=== PATIENT | female | born 1990 | race Caucasian/White ===

== ENCOUNTER 2018-03-21 12:46 | Inpatient (IN) ==
[2018-03-21] MEDS ORDERED: Morphine Sulfate PF Inj 5 MG/10 ML Ampul ONE (13:22)
[2018-03-21] MEDS ORDERED: Citric Acid/Sodium Citrate Liq 30 ML UDC PO SCH (13:30)
[2018-03-21 13:35] LABS: Baso % (Auto) 0.2 % (0.0-2.0); Eos # (Auto) 0.1 th/mm3 (0.0-0.4); Eos % (Auto) 0.9 % (0.0-4.0); Hematocrit 37.1 % (35.0-46.0); Hemoglobin 12.4 gm/dL (11.6-15.3); Lymph # (Auto) 1.5 th/mm3 (1.0-4.8); Lymph % (Auto) 14.5 % (9.0-44.0); Mean Corpuscular HGB Conc 33.5 % (32.0-36.0); Mean Corpuscular Hemoglobin 27.9 pg (27.0-34.0); Mean Corpuscular Volume 83.2 fL (80.0-100.0); Mean Platelet Volume 7.9 fL (7.0-11.0); Mono # (Auto) 0.6 th/mm3 (0.0-0.9); Mono % (Auto) 5.7 % (0.0-8.0); Neut # (Auto) 7.9 th/mm3 (1.8-7.7); Neut % (Auto) 78.7 % (16.0-70.0); Platelet Count 295 th/mm3 (150-450); Red Blood Count 4.46 mil/mm3 (4.00-5.30); Red Cell Distribution Width 14.9 % (11.6-17.2)
--- NOTE | 2018-03-21 13:36 | P.HPOB ---
History of Present Illness Service: ob Primary Care Physician: UNKNOWN Chief Complaint: repeat CD, pre-e History of Present Illness: 27 yo with iup at 39 wk seen at [facility] visit in office was noted to have elevated BP And proteinuria, new onset. Denies HOUSE/VIS changes or ruq change. Good fm, neg ctx/vb/lof. She has had a prior cd and would like repeat cd' she was scheduled for 03/24/18 PMH Obesity, abn glucose tolerance, varicella non-immune PSH CD and Cholecystectomy OB- G1 04/2014 FTCD for arrest of descent, 6 lb 14 oz. 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 This includes certification that hospital inpatient services are reasonable and necessary and in the case of services not specified as inpatient-only under 42 CFR 419.22(n), that they are appropriately provided as inpatient services in accordance to with the 2-midnight benchmark under 43 CFR 412.3(e) Estimated Total Length of Stay (Days): 3 Plans for Post Hospital Care: Home Review of Systems All other systems reviewed negative except as stated in HPI PMFSH - Tobacco History Smoking Status: Never smoker - Substance Use History Substance History: No History of Abuse - Travel History History of Recent Travel: No Medications and Allergies Active Medications: Active Medications Citric Acid/Sodium Citrate (Sodium Citrate/Citric Acid Liq) 30 ml PO SKIN DIVER [facility] Stop: 03/25/18 13:29 Cefazolin Sodium 2,000 mg/ (Sodium Chloride) 100 mls @ 200 mls/hr IV.SIG SKIN DIVER LEANDRO Stop: 03/25/18 13:59 Lactated Ringer's (Lr 1000 Ml Inj) 1,000 mls @ 2,000 mls/hr IV.SIG .Q30M ONE Stop: 03/21/18 13:57 Lactated Ringer's (Lr 1000 Ml Inj) 1,000 mls @ 150 mls/hr IV.CONT .Q6H40M [facility] Allergies Allergy/AdvReac Type Severity Reaction Status Date / Time No Known Allergies Allergy Verified 03/21/18 14:14 Home Medications Medication Instructions Recorded Confirmed Type No Known Home Medications 03/21/18 03/21/18 History Exam Vital signs: Vital Signs 03/21/18 13:05 03/21/18 13:06 Temperature 98.3 F Pulse Rate 103 H Respiratory Rate 20 Blood Pressure 133/90 - Constitutional no acute distress - Routine HEENT Exam Head: Present: normocephalic Eye: Present: EOMI - Routine Neck Exam Present: full ROM - Routine Respiratory Exam Absent: accessory muscle use, decreased breath sounds - Routine Cardiovascular Exam Present: RRR - Routine Abdominal Exam Present: soft - Routine Exam Comments: ft/th/hi - Routine Extremities Exam Absent: cyanosis, clubbing, edema - Routine Neurological Exam Present: alert, oriented X3 Results - Labs CBC & Chem 7: 03/21/18 13:10 03/21/18 13:10 Caprini VTE Risk Assessment Greggrini VTE Risk Assessment: No/Low Risk (score <= 1) Greggrini Risk Assessment Model: Point Value = 1 Point Value = 2 Point Value = 3 Point Value = 5 Age 41-60 Minor surgery BMI > 25 kg/m2 Swollen legs Varicose veins or History of unexplained or recurrent spontaneous Oral contraceptives or hormone replacement Sepsis (< 1 month) Serious lung disease, including pneumonia (< 1 month) Abnormal pulmonary function Acute myocardial infarction Congestive heart failure (< 1 month) History of inflammatory bowel disease Medical patient at bed rest Age 61-74 Arthroscopic surgery Major open surgery (> 45 min) Laparoscopic surgery (> 45 min) Malignancy Confined to bed (> 72 hours) Immobilizing plaster cast Central venous access Age >= 75 History of VTE Family history of VTE Factor V Leiden Prothrombin [id number] Lupus anticoagulant Anticardiolipin antibodies Elevated serum homocysteine Heparin-induced thrombocytopenia Other congenital or acquired thrombophilia Stroke (< 1 month) Elective arthroplasty Hip, pelvis, or leg fracture Acute spinal cord injury (< 1 month) Prophylaxis Regimen: Total Risk Factor Score Risk Level Prophylaxis Regimen 0-1 Low Early ambulation 2 Moderate Order ONE of the following: *Sequential Compression Device (SCD) *Heparin 5000 units SQ BID 3-4 Higher Order ONE of the following medications: *Heparin 5000 units SQ TID *Enoxaparin/Lovenox 40 mg SQ daily (WT < 150 kg, CrCl > 30 mL/min) *Enoxaparin/Lovenox 30 mg SQ daily (WT < 150 kg, CrCl > 10-29 mL/min) *Enoxaparin/Lovenox 30 mg SQ BID (WT < 150 kg, CrCl > 30 mL/min) AND/OR *Sequential Compression Device (SCD) 5 or more Highest Order ONE of the following medications: *Heparin 5000 units SQ TID (Preferred with Epidurals) *Enoxaparin/Lovenox 40 mg SQ daily (WT < 150 kg, CrCl > 30 mL/min) *Enoxaparin/Lovenox 30 mg SQ daily (WT < 150 kg, CrCl > 10-29 mL/min) *Enoxaparin/Lovenox 30 mg SQ BID (WT < 150 kg, CrCl > 30 mL/min) AND *Sequential Compression Device (SCD) Assessment and Plan - Diagnosis (1) History of delivery Code(s): Z98.891 - History of uterine scar from previous surgery Status: Acute (2) Maternal varicella, non-immune Code(s): O09.899 - Supervision of other high risk pregnancies, unspecified trimester; Z28.3 - Underimmunization status Status: Acute (3) History of spontaneous Code(s): Z87.59 - Personal history of other complications of , childbirth and the puerperium Status: Acute (4) Abnormal glucose tolerance affecting , antepartum Code(s): O99.810 - Abnormal glucose complicating Status: Acute (5) Preeclampsia Code(s): O14.90 - Unspecified pre-eclampsia, unspecified trimester Status: Acute - Plan 27 yo with iup at 39 wk being admitted for repeat cd for preeclampsia Elevated BP and proteinuria- meets criteria for Pre-eclampsia Obesity with abn glucose tolerance - abn 1 hour but normal 3 hr gtt varicella non-immune - vaccination pp Ascus pap neg hpv- repeat pp FEtus - cephalic, female, Mansi
[2018-03-21 13:56] LABS: Albumin 2.8 g/dL (3.4-5.0); Anion Gap 12 meq/L (5-15); Aspartate Aminotransferase 19 U/L (15-37); Blood Urea Nitrogen 13 mg/dL (7-18); Calcium 8.6 mg/dL (8.5-10.1); Carbon Dioxide 19.7 meq/L (21.0-32.0); Chloride 105 meq/L (98-107); Glomerular Filtration Rate Greater Than 89 mL/min (>89); Glucose,Random 74 mg/dL (74-106); Sodium 137 meq/L (136-145); Uric Acid 4.7 mg/dl (2.6-6.0)
[2018-03-21] MEDS ORDERED: ceFAZolin 2 GM Premix Inj 2 GM/100 ML BAG IV.SIG SCH (14:00)
[2018-03-21] MEDS ORDERED: ceFAZolin Inj 2,000 MG in Sodium Chlor 0.9% Inj 80 ML IV.SIG SCH (14:00)
[2018-03-21 14:03] LABS: Alanine Aminotransferase 25 U/L (10-53); Alkaline Phosphatase 166 U/L (45-117); Total Protein 6.7 g/dL (6.4-8.2)
[2018-03-21 14:10] LABS: Amphetamine Screen,Urine Neg (Neg); Bacteria,Urine Moderate /hpf; Barbiturate Screen,Urine Neg (Neg); Bilirubin,Urine Negative (Negative); Cannabinoid Screen,Urine Neg (Neg); Clarity,Urine Cloudy (Clear); Cocaine Screen,Urine Neg (Neg); Color,Urine Amber (Yellw/Straw); Glucose,Urine (UA) Negative (Negative); Leukocyte Esterase,Urine Small (Negative); Mucus,Urine Few /lpf (Occasional); Nitrite,Urine Negative (Negative); Specific Gravity,Urine 1.027 (1.002-1.035); Squamous Epithelial Cell,Urine 15 /hpf (0-5)
[2018-03-21 14:19] LABS: Opiate Screen,Urine Neg (Neg)
[2018-03-21] MEDS ORDERED: Phenylephrine/NS 1000 MCG/10ML Syringe IV.PUSH ONE (14:45)
[2018-03-21] MEDS ORDERED: Acetaminophen 325 MG Tablet PO PRN (15:53)
[2018-03-21] MEDS ORDERED: Zolpidem Tartrate 5 MG Tablet PO PRN (15:53)
[2018-03-21] MEDS ORDERED: Senna/Docusate Sodium 8.6/50 MG Tablet PO PRN (15:53)
[2018-03-21] MEDS ORDERED: Simethicone 80 MG Chew Tablet PO PRN (15:53)
--- NOTE | 2018-03-21 16:00 | P.OBDELI ---
Procedure Note - Pre Op Diagnosis (1) History of delivery (2) Maternal varicella, non-immune (3) Abnormal glucose tolerance affecting , antepartum (4) Preeclampsia - Post Op Diagnosis (1) History of delivery (2) Maternal varicella, non-immune (3) Abnormal glucose tolerance affecting , antepartum (4) Preeclampsia Performed by: Doris Begum MD Procedure: Repeat Low Transverse Section Indication for Delivery: Desired elective repeat , Maternal medical problems (preeclampsia) Informed Consent Obtained: For anesthesia, For procedure Confirmed Correct: Patient, Procedure, Site, Time-out taken Anesthesia: Spinal Medication Prior to Procedure: As documented in eMAR Monitoring During Procedure: Blood pressure monitoring, Pulse oximetry Urinary Catheter: Inserted using sterile technique, To dependent drainage, ml urine output (100) Sterile Preparation: With 2% chlorexidine (Hibiclens), With drapes to expose affected area Position: Supine with wedge to right side, Supine with safety belt applied - Operative Features Skin Incision: Pfannenstiel Uterine Incision: Low transverse w/knife / blunt ext Membranes Ruptured: Appearance of fluid (clear) Presentation: Occiput posterior, Compound (right arm) Status of : Viable Placenta Delivered: Intact Medications: Antibiotics, Oxytocin Estimated blood loss (mL): 800 Procedure Tolerated: Well Maternal Condition: Stable Baby Condition: Stable Procedure in Detail: Indication: Preeclampsia at term, desired repeat CD Intraoperative findings: Normal uterus, tubes and ovaries. Right paratubal cyst. Adhesion of fascia to rectus muscles, scarring of fascia and subcutaneous tissue. Complications: none Counts: Correct x 3 Specimens: cord blood Dispo: to pacu Procedure in detail: After review of informed consent, pt was taken to the OR where spinal anesthesia was administered w/o complication. She had swann placed in sterile fashion. SCDs to bilateral extremities. Ancef 2 g IV given preincision. Abdomen and perineum were prepped and draped in sterile fashion. A Pfannenstiel skin incision was made with the scalpel at prior incision site, and carried down to the underlying layer of fascia with the bovie. the subcutaneous tissue and the fascia were noted to have scarring. The fascia was incised in the midline; this incision was extended bilaterally w Rea scissors. The superior edge, followed by the inferior edge, of the fascia was grasped with clayton clamps, elevated and from the rectus muscles with rea scissors and bluntly. The rectus muscles were in the midline with the hemostat. Peritoneum was entered bluntly and extended to allow for good visualization of the lower uterine segment. Bladder blade was inserted. A bladder flap was created with Metzenbaum scissors. The bladder blade was then replaced. A low transverse uterine incision was made with the scalpel and extended bluntly. Clear amniotic fluid noted. Baby was OP with right compound are. The head was flexed and brought to the level of the hysterotomy. Fundal pressure was used to deliver the head, the rest of the body readily followed. Viable female infant. Delayed cord clamping of 45 seconds was performed. Baby was handed off to team. Cord blood was collected. IV infusion of pitocin was started immediately after the delivery of the . The placenta was delivered w gentle cord traction and uterine massage. The uterus was exteriorized. The uterine cavity was cleared with moistened laparotomy sponges then repaired in two layers with number 1 chromic in a running locked fashion followed by an imbricating layer. The posterior cul de sac was irrigated and suctioned. The uterus was noted to be hemostatic. It was returned to the abdomen. The anterior cul-de-sac was irrigated and suctioned. The peritoneum was closed with 2-0 chromic in a running fashion. The fascia was closed with number 1 vicryl in a running fashion. Subcutaneous tissue was irrigated and hemostasis obtained w the bovie. The subcutaneous tissue was brought together with 2-0 chromic in a running fashion. The skin was closed with 3-0 monocryl in a subcuticular fashion. Dermabond was placed as well. PT was sent to pacu in stable condition. - Infant: Female Female A Delivery Date: 03/21/18 Infant Delivery Time: 15:05 Weight: 3.26 kg Delivery of Infant: Uneventful score (1 min): 8 score (5 min): 8
[2018-03-21] MEDS ORDERED: Oxytocin 30 Units/500ml Premix 30 UNITS/500 ML BAG IV.SIG ONE (16:30)
[2018-03-21] MEDS ORDERED: Oxytocin 30 Units/500ml Premix 30 UNITS/500 ML BAG IV.SIG PRN (20:53)
[2018-03-22 02:55] VITALS: O2SAT 96
--- NOTE | 2018-03-22 05:50 | P.OBGPN ---
Queried PDMP and reviewed report
--- NOTE | 2018-03-22 06:51 | P.PNOB ---
Subjective Post op day: 1 Interval history: Doing well, pain controlled, vaginal bleeding less than menses, ambulating without difficulty, voiding spontaneously, tolerating regular diet. Denies any headaches, blurry vision or epigastric pain. Objective Vital Signs/I&O: Vital Signs 03/21/18 13:05 03/21/18 13:06 03/21/18 13:35 Temperature 98.3 F Pulse Rate 103 H 96 H Respiratory Rate 20 Blood Pressure 133/90 125/84 Pulse Oximetry 03/21/18 16:00 03/21/18 16:15 03/21/18 16:30 Temperature 96.0 F L Pulse Rate 81 86 80 Respiratory Rate 14 16 16 Blood Pressure 137/76 128/72 139/74 Pulse Oximetry 03/21/18 16:45 03/21/18 16:50 03/21/18 16:56 Temperature 97.6 F Pulse Rate 85 Respiratory Rate 16 16 Blood Pressure 121/67 Pulse Oximetry 03/21/18 16:59 03/21/18 18:00 03/21/18 19:35 Temperature 97.6 F 97.6 F Pulse Rate 83 80 84 Respiratory Rate 18 18 Blood Pressure 123/78 128/71 116/79 Pulse Oximetry 03/22/18 02:54 03/22/18 02:58 Temperature 98.2 F 98.2 F Pulse Rate 80 80 Respiratory Rate 18 18 Blood Pressure 116/67 116/79 Pulse Oximetry 96 Intake & Output 03/21/18 03/21/18 03/22/18 06:59 18:59 06:59 Weight 104.355 kg Result Diagrams: 03/21/18 13:10 03/21/18 13:10 Objective Remarks: GENERAL: Well-nourished, well-developed patient. CARDIOVASCULAR: Regular rate and rhythm without murmurs, gallops, or rubs. RESPIRATORY: Breath sounds equal bilaterally. No accessory muscle use. ABDOMEN/GI: Abdomen soft, non-tender, bowel sounds present. Did not inspect the incision the patient is is resting with her . fundus: Firm, non-tender at umbilicus. GENITOURINARY: Light to moderate bleeding. EXTREMITIES: No cyanosis or edema, non-tender, without signs of DVT. Medications and IVs: Active Medications Acetaminophen (Tylenol) 650 mg PO Q6H PRN PRN Reason: PAIN SCALE 1 TO 2 Citric Acid/Sodium Citrate (Sodium Citrate/Citric Acid Liq) 30 ml PO [employer]GER [facility] Stop: 03/25/18 13:29 Last Admin: 03/21/18 13:56 Dose: 30 ml Diphenhydramine HCl (Benadryl) 25 mg PO Q6H PRN PRN Reason: ALLERGIES Diphtheria/Pertussis/Tetanus Vacc (Boostrix Vaccine Inj) 0.5 ml IM .ONCE ONE Stop: 03/22/18 16:01 Cefazolin/Sodium Chloride (Ancef 2 Gm Premix Inj) 2 gm in 100 mls @ 200 mls/hr IV.SIG [employer] [facility] Lactated Ringer's (Lr 1000 Ml Inj) 1,000 mls @ 100 mls/hr IV.CONT .Q10H [facility] Stop: 03/22/18 16:52 Last Admin: 03/22/18 00:46 Dose: Not Given Oxytocin (Pitocin 30 Units/Ns 500 Ml Premix) 30 units in 500 mls @ 100 mls/hr IV.SIG UNSCH PRN PRN Reason: Heavy bleeding Ibuprofen (Motrin) 800 mg PO Q8H PRN PRN Reason: cramping Last Admin: 03/22/18 04:35 Dose: 800 mg Measles/Mumps/Rubella Vaccine Live (M-M-R Ii Vaccine Inj) 0.5 ml SQ .ONCE ONE Stop: 03/22/18 16:01 Ondansetron HCl (Zofran Inj) 4 mg IV.PUSH Q6H PRN PRN Reason: NAUSEA OR VOMITING Last Admin: 03/21/18 17:37 Dose: 4 mg Oxycodone/Acetaminophen (Percocet 5/325 Mg) 1 tab PO Q4H PRN PRN Reason: PAIN SCALE 3 TO 5 Oxycodone/Acetaminophen (Percocet 5/325 Mg) 2 tab PO Q4H PRN PRN Reason: PAIN SCALE 6 TO 10 Senna/Docusate Sodium (Rossy-Colace) 2 tab PO Q12H PRN PRN Reason: CONSTIPATION Simethicone (Mylicon Chew) 80 mg PO QID PRN PRN Reason: FLATULENCE Sodium Chloride (Ns Flush) 2 ml IV.FLUSH BID [facility] Last Admin: 03/22/18 00:46 Dose: Not Given Sodium Chloride (Ns Flush) 2 ml IV.FLUSH UNSCH PRN PRN Reason: FLUSH AFTER USING IV ACCESS Zolpidem Tartrate (Ambien) 5 mg PO HS PRN PRN Reason: INSOMNIA Assessment and Plan - Plan 27-year-old status post scheduled repeat low transverse at 39 weeks. 1. Postoperative day #1: Afebrile, vital signs stable, output appropriate, a.m. lab work pending, patient meeting her milestones, anticipate discharge home tomorrow. Discussed precautions and expectations and follow-up. -Female 2. Preeclampsia without severe features: Blood pressures mostly normotensive overnight. Discussed preeclampsia precautions. Will follow up in the office in 1 week. 3. varicella non-immune - vaccination pp 4. Ascus pap neg hpv- repeat pp discussed post operative and precautions, expectations and follow-up.
--- NOTE | 2018-03-22 06:52 | P.DS ---
Date of admission: 03/21/18 12:46 Primary care physician: UNKNOWN Brief History from admission: Patient is a 27-year-old who presented for rule out preeclampsia, she was confirmed at preeclampsia without severe features, she underwent a scheduled repeat low transverse at 39 weeks. She was discharged home on postoperative day #2 without any or postoperative complications. DS: Medications - Discharge Medications Prescriptions: oxycodone-acetaminophen [Percocet] 1 tab PO Q4-6H PRN #15 tab PRN Reason: Pain DS: Summary Hospital Course: See brief history - Time Spent with Patient Total time spent providing and/or coordinating discharge services: Less than 30 minutes Exam Vital signs: Vital Signs 03/21/18 13:05 03/21/18 13:06 03/21/18 13:35 Temperature 98.3 F Pulse Rate 103 H 96 H Respiratory Rate 20 Blood Pressure 133/90 125/84 Pulse Oximetry 03/21/18 16:00 03/21/18 16:15 03/21/18 16:30 Temperature 96.0 F L Pulse Rate 81 86 80 Respiratory Rate 14 16 16 Blood Pressure 137/76 128/72 139/74 Pulse Oximetry 03/21/18 16:45 03/21/18 16:50 03/21/18 16:56 Temperature 97.6 F Pulse Rate 85 Respiratory Rate 16 16 Blood Pressure 121/67 Pulse Oximetry 03/21/18 16:59 03/21/18 18:00 03/21/18 19:35 Temperature 97.6 F 97.6 F Pulse Rate 83 80 84 Respiratory Rate 18 18 Blood Pressure 123/78 128/71 116/79 Pulse Oximetry 03/22/18 02:54 03/22/18 02:58 Temperature 98.2 F 98.2 F Pulse Rate 80 80 Respiratory Rate 18 18 Blood Pressure 116/67 116/79 Pulse Oximetry 96 Intake & Output 03/21/18 03/21/18 03/22/18 06:59 18:59 06:59 Weight 104.355 kg Results Procedures completed during hospitalization: Repeat low transverse Labs on day of discharge: Labs from last 24 hours 03/22/18 03/22/18 03/21/18 06:45 06:45 13:10 WBC Pending RBC Pending Hgb Pending Hct Pending MCV MCH MCHC RDW Plt Count Pending MPV Neut % (Auto) Lymph % (Auto) [place] % (Auto) Eos % (Auto) Baso % (Auto) Neut # (Auto) Lymph # (Auto) [place] # (Auto) Eos # (Auto) Baso # (Auto) WBC Differential Pending Differential Comment Pending Sodium Pending Potassium Pending Chloride Pending Carbon Dioxide Pending Anion Gap Pending BUN Pending Creatinine Pending Estimated GFR Random Glucose Pending Uric Acid Calcium Pending Total Bilirubin Pending AST Pending ALT Pending Alkaline Phosphatase Pending Total Protein Pending Albumin Pending Urine Color Urine Clarity Urine pH Ur Specific [place] Urine Protein Urine Glucose (UA) Urine Ketones Urine Occult Blood Urine Nitrate Urine Bilirubin Urine Urobilinogen Ur Leukocyte Esterase Urine RBC Urine WBC Ur Squamous Epith Cells Urine Bacteria Urine Mucus Micro UA Comment Ur Microscopic Review Urine Culture Comments Urine Opiates Screen Ur Barbiturates Screen Ur Amphetamines Screen U Benzodiazepines Scrn Urine Cocaine Screen U Cannabinoids Screen Blood Type O Positive Blood Type Recheck Required Antibody Screen Negative 03/21/18 03/21/18 03/21/18 13:10 13:10 13:00 WBC 10.0 RBC 4.46 Hgb 12.4 Hct 37.1 MCV 83.2 MCH 27.9 MCHC 33.5 RDW 14.9 Plt Count 295 MPV 7.9 Neut % (Auto) 78.7 H Lymph % (Auto) 14.5 Mil[place] % (Auto) 5.7 Eos % (Auto) 0.9 Baso % (Auto) 0.2 Neut # (Auto) 7.9 H Lymph # (Auto) 1.5 [place] # (Auto) 0.6 Eos # (Auto) 0.1 Baso # (Auto) 0.0 WBC Differential . Differential Comment Auto diff final Sodium 137 Potassium 4.0 Chloride 105 Carbon Dioxide 19.7 L Anion Gap 12 BUN 13 Creatinine 0.60 Estimated GFR Greater than 89 Random Glucose 74 Uric Acid 4.7 Calcium 8.6 Total Bilirubin 0.4 AST 19 ALT 25 Alkaline Phosphatase 166 H Total Protein 6.7 Albumin 2.8 L Urine Color Araseli Urine Clarity Cloudy H Urine pH 5.0 Ur Specific [place] 1.027 Urine Protein 100 H Urine Glucose (UA) Negative Urine Ketones 20 Urine Occult Blood Negative Urine Nitrate Negative Urine Bilirubin Negative Urine Urobilinogen 2.0 H Ur Leukocyte Esterase Small H Urine RBC 2 Urine WBC 15 H Ur Squamous Epith Cells 15 Urine Bacteria Moderate H Urine Mucus Few H Micro UA Comment Culture indicated Ur Microscopic Review Not Reportable Urine Culture Comments Culture indicated Urine Opiates Screen Ur Barbiturates Screen Ur Amphetamines Screen U Benzodiazepines Scrn Urine Cocaine Screen U Cannabinoids Screen Blood Type Blood Type Recheck Antibody Screen 03/21/18 13:00 WBC RBC Hgb Hct MCV MCH MCHC RDW Plt Count MPV Neut % (Auto) Lymph % (Auto) [place] % (Auto) Eos % (Auto) Baso % (Auto) Neut # (Auto) Lymph # (Auto) [place] # (Auto) Eos # (Auto) Baso # (Auto) WBC Differential Differential Comment Sodium Potassium Chloride Carbon Dioxide Anion Gap BUN Creatinine Estimated GFR Random Glucose Uric Acid Calcium Total Bilirubin AST ALT Alkaline Phosphatase Total Protein Albumin Urine Color Urine Clarity Urine pH Ur Specific [place] Urine Protein Urine Glucose (UA) Urine Ketones Urine Occult Blood Urine Nitrate Urine Bilirubin Urine Urobilinogen Ur Leukocyte Esterase Urine RBC Urine WBC Ur Squamous Epith Cells Urine Bacteria Urine Mucus Micro UA Comment Ur Microscopic Review Urine Culture Comments Urine Opiates Screen Neg Ur Barbiturates Screen Neg Ur Amphetamines Screen Neg U Benzodiazepines Scrn Neg Urine Cocaine Screen Neg U Cannabinoids Screen Neg Blood Type Blood Type Recheck Antibody Screen Discharge Plan - Discharge Disposition Patient Disposition: Discharge Home - Discharge Condition Condition: Good - Discharge Order Discharge Orders: Discharge Order (Routine); Ordered 03/23/18 Ordered By: Guido Suggs - Discharge Details Anticipated Discharge Date: 03/23/18 Discharge Comment: f/u in 1 wk for bp and wound check - Physicians Team Primary Care Provider: UNKNOWN, Attending Provider: Doris Begum - Rxs /Orders / Referrals /Forms Prescriptions: New oxycodone-acetaminophen [Percocet] 5-325 mg Tablet 1 tab PO Q4-6H PRN (Reason: Pain) Qty: 15 RF: 0 No Action No Known Home Medications Referrals: Doris Begum MD [Physician] - See Instructions UNKNOWN, [Primary Care Provider] - See Instructions - Discharge Instructions Patient Printed Instructions: Preeclampsia (ED), (DC) - Post Discharge Care Plan Care Plan Goals: Congratulations on your new baby! We want your recovery to be forrester and trouble free. Please Report the Following Symptoms to Your Doctor: -Temperature above 100.5 degrees -Redness of incision or excessive or foul smelling drainage -Unusual pain or calf pain -Increased vaginal bleeding -Painful or difficulty urinating -Feelings of extreme sadness or anxiety Goals to Promote Your Health * To prevent worsening of your condition and complications * To maintain your health at the optimal level Directions to Meet Your Goals Take your medications as prescribed Follow your dietary instruction Follow activity as directed Ensure plenty of rest for recovery Drink fluids for hydration Keep your appointments as scheduled Take your immunizations and boosters as scheduled If your symptoms worsen call your OB Physician, or go to an Urgent Care Center or Emergency Room Smoking is Dangerous to your health. Avoid second hand smoke Call the 24-hour crisis hotline for domestic abuse at
[2018-03-22 07:02] LABS: Baso % (Auto) 0.2 % (0.0-2.0); Eos % (Auto) 0.1 % (0.0-4.0); Hematocrit 33.1 % (35.0-46.0); Hemoglobin 10.9 gm/dL (11.6-15.3); Lymph # (Auto) 1.3 th/mm3 (1.0-4.8); Lymph % (Auto) 11.5 % (9.0-44.0); Mean Corpuscular HGB Conc 32.8 % (32.0-36.0); Mean Corpuscular Hemoglobin 27.7 pg (27.0-34.0); Mean Corpuscular Volume 84.3 fL (80.0-100.0); Mono # (Auto) 1.2 th/mm3 (0.0-0.9); Mono % (Auto) 10.5 % (0.0-8.0); Neut # (Auto) 8.6 th/mm3 (1.8-7.7); Neut % (Auto) 77.7 % (16.0-70.0); Platelet Count 257 th/mm3 (150-450); Red Blood Count 3.93 mil/mm3 (4.00-5.30); Red Cell Distribution Width 14.7 % (11.6-17.2)
[2018-03-22 07:15] LABS: Alanine Aminotransferase 21 U/L (10-53); Albumin 2.2 g/dL (3.4-5.0); Anion Gap 11 meq/L (5-15); Aspartate Aminotransferase 17 U/L (15-37); Blood Urea Nitrogen 11 mg/dL (7-18); Calcium 7.9 mg/dL (8.5-10.1); Carbon Dioxide 23.2 meq/L (21.0-32.0); Chloride 107 meq/L (98-107); Glomerular Filtration Rate Greater Than 89 mL/min (>89); Glucose,Random 95 mg/dL (74-106); Potassium 4.1 meq/L (3.5-5.1); Sodium 141 meq/L (136-145)
[2018-03-22 07:17] LABS: Alkaline Phosphatase 123 U/L (45-117); Total Protein 5.4 g/dL (6.4-8.2)
[2018-03-22] MEDS ORDERED: Measles/Mumps/Rubella Vaccine Inj 0.5 ML Vial SQ ONE (16:00)
[2018-03-22] MEDS ORDERED: Diphtheria/Tetanus/Pertussis Vaccine Inj 0.5 ML Syringe IM ONE (16:00)
[2018-03-22 20:49] VITALS: RESP 18
--- NOTE | 2018-03-23 08:41 | P.PNOB ---
Subjective Post op day: 2 Interval history: Doing well, pain controlled, ambulating without difficulty, voiding spontaneously, tolerating regular diet, vaginal bleeding less than menses. Objective Vital Signs/I&O: Vital Signs 03/22/18 13:00 03/22/18 20:17 Temperature 97.9 F 98.6 F Pulse Rate 92 H 92 H Respiratory Rate 20 18 Blood Pressure 117/61 135/86 Result Diagrams: 03/22/18 06:45 03/22/18 06:45 Objective Remarks: GENERAL: Well-nourished, well-developed patient. CARDIOVASCULAR: Regular rate and rhythm without murmurs, gallops, or rubs. RESPIRATORY: Breath sounds equal bilaterally. No accessory muscle use. ABDOMEN/GI: Abdomen soft, non-tender, bowel sounds present. Incision: Clean, dry and intact. Fundus: Firm, non-tender at umbilicus. GENITOURINARY: Light to moderate bleeding. EXTREMITIES: No cyanosis or edema, non-tender, without signs of DVT. 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 [facility] Oxytocin (Pitocin 30 Units/Ns 500 Ml Premix) 30 units in 500 mls @ 100 mls/hr IV.SIG UNSCH PRN PRN Reason: Heavy bleeding Ibuprofen (Motrin) 800 mg PO Q8H PRN PRN Reason: cramping Last Admin: 03/23/18 05:21 Dose: 800 mg Ondansetron HCl (Zofran Inj) 4 mg IV.PUSH Q6H PRN PRN Reason: NAUSEA OR VOMITING Last Admin: 03/21/18 17:37 Dose: 4 mg Oxycodone/Acetaminophen (Percocet 5/325 Mg) 1 tab PO Q4H PRN PRN Reason: PAIN SCALE 3 TO 5 Oxycodone/Acetaminophen (Percocet 5/325 Mg) 2 tab PO Q4H PRN PRN Reason: PAIN SCALE 6 TO 10 Senna/Docusate Sodium (Rossy-Colace) 2 tab PO Q12H PRN PRN Reason: CONSTIPATION Simethicone (Mylicon Chew) 80 mg PO QID PRN PRN Reason: FLATULENCE Sodium Chloride (Ns Flush) 2 ml IV.FLUSH BID LEANDRO Last Admin: 03/22/18 21:00 Dose: Not Given Sodium Chloride (Ns Flush) 2 ml IV.FLUSH UNSCH PRN PRN Reason: FLUSH AFTER USING IV ACCESS Zolpidem Tartrate (Ambien) 5 mg PO HS PRN PRN Reason: INSOMNIA Assessment and Plan - Plan 27-year-old status post scheduled repeat low transverse at 39 weeks. 1. Postoperative day #2: Afebrile, vital signs stable, ready for discharge home today. -Female 2. Preeclampsia without severe features: Blood pressures normotensive overnight. Discussed preeclampsia precautions. Will follow up in the office in 1 week. 3. varicella non-immune - vaccination pp 4. Ascus pap neg hpv- repeat pp discussed post operative and precautions, expectations and follow-up.
[2018-03-23 13:59] VITALS: BP 122/88; PULSE 83; TEMP 98.9
== END 2018-03-23 13:40 | disposition home or self-care (01) ==
LOC: H2E 12:46 → H1EA 17:45
PROVIDERS: ADMIT Obstetrics & Gynecology; ATTEND Obstetrics & Gynecology